=== PATIENT | male | born 1975 | race Caucasian/White ===

== ENCOUNTER 2016-10-26 18:33 | Emergency (ER) | payer OTHER, BC ==
[~2016-10-26] VITALS: Wt 99.8 kg
[2016-10-26] MEDS ORDERED: NAPROSYN500 MG PO (19:02)
[2016-10-26] MEDS ORDERED: 'PARAFON FORTE500 M1 PO (19:02)
== END 2016-10-26 20:22 | disposition home or self-care (01) ==
LOC: ED 18:33
DX: S16.1XXA Strain of muscle, fascia and tendon at neck level, initial encounter (principal); S00.83XA Contusion of other part of head, initial encounter; R03.0 Elevated blood-pressure reading, without diagnosis of hypertension; V89.2XXA Person injured in unspecified motor-vehicle accident, traffic, initial encounter; Y93.89 Activity, other specified; Y92.89 Other specified places as the place of occurrence of the external cause; Y99.8 Other external cause status